=== PATIENT | male | born 1985 | race Caucasian/White ===

== ENCOUNTER 2021-07-05 11:36 | Emergency (ER) | payer SELFPAY ==
[~2021-07-05] VITALS: Ht 167.6 cm; Wt 68.2 kg
[2021-07-05 11:44] VITALS: BP 148/90
--- NOTE | 2021-07-05 12:02 | NUR ---
35Y MALE BIB SELF DUE TO LOWER BACK PAIN X1 WEEK S/P LIFTING LADDERS AT WORK. PT STATED HE HAS BEEN TAKING TYLENOL, BUT HAS PROVIDED NO RELIEF PMH: DENIES ALLERGIES: IBURPOFEN
[2021-07-05] MEDS ORDERED: methocarbamoL 500 MG TAB PO SCH (12:40)
[2021-07-05] MEDS ORDERED: KETOROLAC 30 MG/ML VIAL IM ONE (12:40)
[2021-07-05] MEDS ORDERED: ACET-8386 PO (12:51)
--- NOTE | 2021-07-05 13:46 | NUR ---
Patient discharged with v/s stable. Written and verbal after care instructions given and explained. Patient alert, oriented and verbalized understanding of instructions. Ambulatory with steady gait. All questions addressed prior to discharge. ID band removed. Patient advised to follow up with PMD. Rx of HYDROCODNE/ACETAMINOPHEN given. Patient educated on indication of medication including possible reaction and side effects. Opportunity to ask questions provided and answered.
[2021-07-05 13:47] VITALS: BP 148/88
[2021-07-05] MEDS ORDERED: ACET-5629 PO (14:19)
== END 2021-07-05 13:46 | disposition home or self-care (01) ==
LOC: MED 11:36
DX: S29.012A Strain of muscle and tendon of back wall of thorax, initial encounter (principal); Z88.6 Allergy status to analgesic agent; Z79.899 Other long term (current) drug therapy; X50.0XXA Overexertion from strenuous movement or load, initial encounter; Y93.89 Activity, other specified; Y92.89 Other specified places as the place of occurrence of the external cause; Y99.8 Other external cause status
CPT/HCPCS: 81002; 96372; 99283; J1885